=== PATIENT | female | born 1995 | race Caucasian/White ===

== ENCOUNTER 2019-08-12 12:42 | Inpatient (IN) | payer BC ==
[2019-08-12 13:31] LABS: #Basophils 0.1 thou/uL (0.0-0.2); #Eosinphils 0.1 thou/uL (0.0-0.7); #Lymphocytes 2.7 thou/uL (1.20-3.40); #Monocytes 0.6 thou/uL (0.11-0.59); %Basophils 0.8 % (0.0-1.0); %Eosinophils 1.3 % (0.0-10.0); %Lymphocytes 25.8 % (21.0-51.0); %Monocytes 5.3 % (0.0-10.0); %Neutrophils 66.8 % (42.0-75.0); Hemoglobin 14.7 g/dL (12.0-16.0); Mean Corpuscular HGB CONC 34.6 g/dL (32.0-36.0); Mean Corpuscular Hemoglobin 31.4 pg (27.0-31.0); Mean Corpuscular Volume 90.8 fL (78.0-98.0); Mean Platelet Volume 6.8 fL (7.4-10.4); Platelet Count 451 thou/uL (130-400); RBC Distribution Width 11.2 % (11.5-14.5); Red Blood Cell (RBC) Count 4.67 mill/uL (4.20-5.40); White Blood Cell (WBC) Count 10.5 thou/uL (4.8-10.8)
[2019-08-12] MEDS ORDERED: Iopamidol 370 76% 100 ML VIAL ONE (13:34)
[2019-08-12] MEDS ORDERED: Ketorolac Tromethamine 30 MG/ML VIAL ONE (13:50)
[2019-08-12] MEDS ORDERED: diphenhydrAMINE 50 MG/ML VIAL ONE (13:50)
[2019-08-12] MEDS ORDERED: Metoclopramide HCl 10 MG/2 ML VIAL ONE (13:50)
[2019-08-12 13:51] LABS: ALT (SGPT) 29 U/L (8-55); AST (SGOT) 26 U/L (5-34); Albumin 4.8 g/dL (3.5-5.0); Alkaline Phosphatase 55 U/L (40-110); Anion Gap 16 mmol/L (10-20); BUN (Urea Nitrogen) 9 mg/dL (7.0-18.7); Bilirubin, Total 0.5 mg/dL (0.2-1.2); Calc. Creatinine Clearance 0 mL/min (70-130); Calcium 10.2 mg/dL (7.8-10.44); Carbon Dioxide 23 mmol/L (22-29); Chloride 105 mmol/L (98-107); Estimated GFR-MDRD 87; Globulin 3.6 g/dL (2.4-3.5); Glucose 97 mg/dL (70-105); Potassium 3.7 mmol/L (3.5-5.1); Protein, Total 8.4 g/dL (6.0-8.3); Sodium 140 mmol/L (136-145)
--- NOTE | 2019-08-12 13:56 | RAD ---
XR Chest 1 View Portable HISTORY: Fever, headache and stiff neck COMPARISON: None FINDINGS: The heart size is normal. The lungs are well expanded without focal areas of consolidation, pneumothorax or pleural effusions. IMPRESSION: No radiographic evidence of acute cardiopulmonary process.
[2019-08-12 14:21] LABS: MONO NEGATIVE CONTROL ZONE White (Negative) (White); MONO POSITIVE CONTROL Pink Line (Positive) (PINK/RED); Mononucleosis NEGATIVE (NEGATIVE)
[2019-08-12 14:26] LABS: Bilirubin Negative (Negative); Blood, Urine Negative (Negative); Clarity Clear (Clear); Glucose, Urine (Dipstick) 100 mg/dL (Negative); Leukocyte Negative Leu/uL (Negative); Nitrite Negative (Negative); Protein, Urine (Dipstick) Negative (Neg-Trace); Urobilinogen Normal mg/dL (Less than 2)
--- NOTE | 2019-08-12 15:01 | CT ---
CT BRAIN NONCONTRAST: DATE: 08/12/2019 HISTORY: 24-year-old female with headache FINDINGS: There is no evidence of acute intra-axial or extra-axial hemorrhage. There is no midline shift or any other mass effect. There is no extra-axial fluid collection. The ventricles are normal in size and configuration. The tympanomastoid cavities, and the upper portions of the paranasal sinuses included in these images, are grossly clear. Calvarium is intact. IMPRESSION: Normal.
--- NOTE | 2019-08-12 15:23 | CT ---
CT SOFT TISSUES OF NECK WITH IV CONTRAST: Date: 08/12/2019 INDICATION: Fever, headache, and neck pain. COMPARISON: None. FINDINGS: The visualized nasopharynx and oropharynx appears within normal limits. The tonsillar pillars appear within normal limits. Parapharyngeal space appears within normal limits. Parotid and submandibular glands are normal appearing. There is slight asymmetric enlargement of the thyroid gland with a small suspected cystic abnormality seen within the central aspect of the right t hyroid lobe measuring 7.0 mm. Larger enhancing nodule within the right thyroid gland cannot be entire ly excluded. No enlarged lymph nodes are evident. Prevertebral soft tissues are normal appearing. Visualized aryep iglottic folds and epiglottis appear within normal limits. Visualized lung apices are clear. Visualiz ed paranasal sinuses are clear. Mastoid air cells are clear. No definite acute osseous abnormality is evident. IMPRESSION: 1. No definite drainable fluid collection demonstrated. No significant lymphadenopathy seen. 2. Slight asymmetric prominence of the right thyroid gland. A follow-up nonemergent thyroid ultrasou nd may be helpful for additional characterization. POS: TPC
[2019-08-12] MEDS ORDERED: Cefepime 2 GM VIAL ONE (15:55)
[2019-08-12] MEDS ORDERED: Vancomycin 1 GM/200 ML BAG ONE (17:11)
[2019-08-12 18:27] VITALS: BMI 27.9
[2019-08-12] MEDS ORDERED: Sodium Chloride 0.9% 1,000 ML IV SCH (18:57)
[2019-08-12] MEDS ORDERED: Ondansetron PF 4 MG/2 ML Vial IVP PRN (18:57)
[2019-08-12] MEDS ORDERED: Ondansetron ODT 4 MG TAB SL PRN (18:57)
[2019-08-12] MEDS ORDERED: Acetaminophen 325 MG TAB PO PRN (18:57)
[2019-08-12] MEDS ORDERED: Senokot S 8.6-50 MG TAB PO PRN (19:34)
--- NOTE | 2019-08-12 20:41 | PDOC.HHP ---
Hospitalist HPI - History of Present Illness Headache and neck pain History of Present Illness: 24 yo female with history of ADHD presents to ER due to headache, fever, chills , sweats and neck stiffness. 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 She states that she has been having muscle pains, fever, dry cough x 10 days. She had some chills, joint pains at that time. She was seen by her PCP and was placed on Tamiflu and steroids for 5 days. She states that her cough got better. However, she continued to feel bad. She has had a headache for about 10 days now. About 5 days ago, she started having pain in her neck that is throbbing in nature and has been getting worse. Now, it is 10/10 intensity with stiffness in her neck. She states she is unable to turn her neck to either side. The pain radiates to the front of her head. She reports light sensitivity and blurry vision that started today morning. While she was at work today, she had profuse sweating and chills. So, she was sent to her PCP office who sent her to the ER. In the ER, she underwent CT neck and was felt to have thyroid infection and was given IV antibiotics and admitted to the hospital. She denies any seizures, weakness of her arms or legs. No N/V/C. She reports chronic diarrhea. She reports having a rash on her back, arms and legs 8 days ago that resolved a day later. She states that the rash was red and not raised. Not painful or itchy. No difficulty swallowing or speech changes. No CP, SOB, wheezing, burning or pain with urination. Reports nasal congestion and runny nose. No ear pain, disharge from ears or ringing sensation in her ears. 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) - Past Surgical History Past Surgical History: reports: Other (Left hip surgery) - Family History Family History: reports: diabetes mellitus (maternal side) - Social History Smoking Status: Never smoker Alcohol: reports: None Drugs: reports: none Living Situation: With Family Activity level: independent ambulation - Exam General Appearance: awake alert, ill appearing Eye: PERRL, anicteric sclera ENT: normocephalic atraumatic, no oropharyngeal lesions, moist mucosa Neck: symmetric, no JVD, no lymphadenopathy Neck - other findings: Neck stiffness present; patient not turning head to either side Heart: RRR, no murmur, no gallops, no rubs, normal peripheral pulses Respiratory: CTAB, no wheezes, no rales, no ronchi, normal chest expansion, no tachypnea Gastrointestinal: soft, non-tender, non-distended, normal bowel sounds, no palpable masses, no bruit Extremities: no cyanosis, no clubbing, no edema Skin: normal turgor, no lesions, no rashes Neurological: cranial nerve grossly intact, normal sensation to touch, no weakness, no focal deficits Neurological - other findings: Kernig's sign is positive; Neck stiffness present on exam Musculoskeletal: normal tone, normal strength, no muscle wasting Psychiatric: normal behavior, A&O x 3 Psychiatric - other findings: anxious Hospitalist Results - Labs Result Diagrams: 08/12/19 13:11 08/12/19 13:11 Lab results: WBC 10.5 thou/uL (4.8-10.8) 08/12/19 13:11 Hgb 14.7 g/dL (12.0-16.0) 08/12/19 13:11 Hct 42.4 % (36.0-47.0) 08/12/19 13:11 MCV 90.8 fL (78.0-98.0) 08/12/19 13:11 Plt Count 451 thou/uL (130-400) H 08/12/19 13:11 Neutrophils % 66.8 % (42.0-75.0) 08/12/19 13:11 Sodium 140 mmol/L (136-145) 08/12/19 13:11 Potassium 3.7 mmol/L (3.5-5.1) 08/12/19 13:11 Chloride 105 mmol/L (98-107) 08/12/19 13:11 Carbon Dioxide 23 mmol/L (22-29) 08/12/19 13:11 BUN 9 mg/dL (7.0-18.7) 08/12/19 13:11 Creatinine 0.80 mg/dL (0.6-1.1) 08/12/19 13:11 Glucose 97 mg/dL (70-105) 08/12/19 13:11 Lactic Acid 1.1 mmol/L (0.5-2.2) 08/12/19 13:11 Calcium 10.2 mg/dL (7.8-10.44) 08/12/19 13:11 Total Bilirubin 0.5 mg/dL (0.2-1.2) 08/12/19 13:11 AST 26 U/L (5-34) 08/12/19 13:11 ALT 29 U/L (8-55) 08/12/19 13:11 Alkaline Phosphatase 55 U/L (40-110) 08/12/19 13:11 Serum Total Protein 8.4 g/dL (6.0-8.3) H 08/12/19 13:11 Albumin 4.8 g/dL (3.5-5.0) 08/12/19 13:11 Urine Ketones Negative mg/dL (Negative) 08/12/19 13:55 Urine Blood Negative (Negative) 08/12/19 13:55 Urine Nitrite Negative (Negative) 08/12/19 13:55 Ur Leukocyte Esterase Negative Edwin/uL (Negative) 08/12/19 13:55 - EKG Interpretation EKG: Sinus rhythm; No ST-T changes concerning for ischemia - Radiology Interpretation CT scan - head Status: image reviewed by me (No acute hemorrhage or mass effect) Hospitalist H&P A/P - Problem (1) Headache Code(s): R51 - HEADACHE Status: Acute Qualifiers: Headache type: unspecified Headache chronicity pattern: acute headache Intractability: not intractable Qualified Code(s): R51 - Headache Assessment and Plan: Suspicion for bacterial/viral meningitis Patient received IV ABX of vanco & cefepime in ER Admit to inpatient status. Expected to stay at least 2 midnights. High risk due to risk of seizures and worsening infection IR guided LP tomorrow Continue IV vancomycin. Start ceftriaxone and acyclovir emperically. As patient already received abx, hold off on steroid therapy ID consult CSF analysis from LP Further management per ID and based on results of LP (2) ADHD Status: Chronic Qualifiers: Attention deficit-hyperactivity disorder type: unspecified Qualified Code(s ): F90.9 - Attention-deficit hyperactivity disorder, unspecified type Assessment and Plan: [facility] [place], [place] reviewed Patient on Adderral 10 mg PO TID This will be resumed at home dose (3) Thyroid nodule Code(s): E04.1 - NONTOXIC SINGLE THYROID NODULE Status: Chronic Assessment and Plan: CT scan with thyroid abnormality Will obtain US thyroid tomorrow TSH within normal limits - Plan Plan: CODE STATUS - FULL CODE
[2019-08-12] MEDS: Fioricet 325/50/40 mg Tablet PO PRN (20:57)
[2019-08-12] MEDS: cefTRIAXone\\ROCEPHIN 2 GM in Sodium Chloride 0.9% 100 ML IVPB SCH (20:58)
[2019-08-12] MEDS ORDERED: Dextroamphetamine/Amphetamine [Adderall] 10 MG PO SCH (21:00)
[2019-08-12] MEDS ORDERED: Dexamethasone 10 MG in Sodium Chloride 0.9% 50 ML IVPB SCH (21:00)
[2019-08-12] MEDS: Potassium Chloride 20 MEQ in Lactated Ringer's 1,000 ML IV SCH (21:58)
[2019-08-12] MEDS: Acyclovir Sodium 650 MG in Sodium Chloride 0.9% 100 ML IVPB SCH (21:58)
[2019-08-13] MEDS: Fioricet 325/50/40 mg Tablet PO PRN ×3 (01:41→20:24)
[2019-08-13] MEDS ORDERED: Ketorolac Tromethamine 30 MG/ML VIAL IVP SCH (03:15)
[2019-08-13] MEDS ORDERED: diphenhydrAMINE 50 MG/ML VIAL IVP SCH (03:15)
[2019-08-13] MEDS ORDERED: Prochlorperazine 10 MG/2 ML VIAL IVP SCH (03:15)
[2019-08-13] MEDS ORDERED: Vancomycin HCl 1.25 GM in Sodium Chloride 0.9% 250 ML 250 ML IVPB SCH (04:00)
[2019-08-13] MEDS: Acyclovir Sodium 650 MG in Sodium Chloride 0.9% 100 ML IVPB SCH ×3 (05:40→21:32)
[2019-08-13 06:26] LABS: #Basophils 0.1 thou/uL (0.0-0.2); #Eosinphils 0.2 thou/uL (0.0-0.7); #Lymphocytes 2.7 thou/uL (1.20-3.40); #Monocytes 0.6 thou/uL (0.11-0.59); #Neutrophils 5.3 thou/uL (1.40-6.50); %Basophils 0.8 % (0.0-1.0); %Eosinophils 2.3 % (0.0-10.0); %Lymphocytes 30.5 % (21.0-51.0); %Monocytes 7.1 % (0.0-10.0); %Neutrophils 59.3 % (42.0-75.0); Hemoglobin 12.5 g/dL (12.0-16.0); Mean Corpuscular HGB CONC 34.9 g/dL (32.0-36.0); Mean Corpuscular Hemoglobin 32.1 pg (27.0-31.0); Mean Corpuscular Volume 92.1 fL (78.0-98.0); Mean Platelet Volume 6.9 fL (7.4-10.4); Platelet Count 335 thou/uL (130-400); RBC Distribution Width 11.2 % (11.5-14.5); White Blood Cell (WBC) Count 8.9 thou/uL (4.8-10.8)
[2019-08-13 06:35] LABS: ALT (SGPT) 23 U/L (8-55); AST (SGOT) 22 U/L (5-34); Albumin 3.6 g/dL (3.5-5.0); Alkaline Phosphatase 43 U/L (40-110); Anion Gap 8 mmol/L (10-20); BUN (Urea Nitrogen) 6 mg/dL (7.0-18.7); Bilirubin, Total 0.5 mg/dL (0.2-1.2); Calc. Creatinine Clearance 119 mL/min (70-130); Calcium 8.7 mg/dL (7.8-10.44); Carbon Dioxide 25 mmol/L (22-29); Chloride 110 mmol/L (98-107); Estimated GFR-MDRD Greater than 90; Globulin 2.7 g/dL (2.4-3.5); Glucose 96 mg/dL (70-105); Protein, Total 6.3 g/dL (6.0-8.3); Sodium 139 mmol/L (136-145)
[2019-08-13] MEDS: cefTRIAXone\\ROCEPHIN 2 GM in Sodium Chloride 0.9% 100 ML IVPB SCH (08:03)
[2019-08-13] MEDS: Enoxaparin Sodium 40 MG/0.4 ML SYRINGE SC SCH (08:04)
--- NOTE | 2019-08-13 08:06 | ULT ---
THYROID ULTRASOUND INDICATION: Thyroid nodule TECHNIQUE: Grayscale and color Doppler images were obtained of the thyroid gland. COMPARISON: None FINDINGS: Right thyroid lobe: The right thyroid lobe measures 5.1 x 2.7 x 2.1 cm. There is a 3.9 x 1.7 x 1.7 cm mixed cystic and solid nodule. The nodule is 90% solid. The nodule is isoechoic to the thyroid parenchyma. The nodule is well-circumscribed and wider than tall. There is increased vascularity surr ounding the nodule. Thyroid isthmus: The thyroid isthmus measures 0.24 cm. Left thyroid lobe: The left thyroid lobe measures 5.1 x 2.7 x 2.1 cm. IMPRESSION: 1. TIRADS category 3: Mildly suspicious: Recommend FNA sampling of the predominantly solid 3.9 cm nod ule in the right mid thyroid lobe.
[2019-08-13] MEDS: Potassium Chloride 20 MEQ in Lactated Ringer's 1,000 ML IV SCH ×3 (09:37→23:59)
--- NOTE | 2019-08-13 10:37 | CON ---
DATE OF CONSULTATION: 08/13/2019 REASON FOR CONSULTATION: Fever and headaches. 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 Had a soft tissue neck CT, which did not show any major findings except for a slightly asymmetric right thyroid gland. The chest x-ray was within normal limits and the patient had a brain CT, which was also unremarkable. Currently, she is having still a sensation with moderate headaches, stiff neck. No visual symptoms. No sore throat, odynophagia, or dysphagia. General myalgias. No cough or sputum production or chest pain. No abdominal pain or diarrhea. No genitourinary symptoms. No joint symptoms or skin disorder. She did have what she describes as hives in the back area at the beginning of this syndrome. PAST MEDICAL HISTORY: Lithotripsy, D and C, groin lymph nodes with benign pathology. SOCIAL HISTORY: Does not smoke. She lives with her boyfriend in [facility]. Works at a doctor's office. Drinks occasionally. ALLERGIES: CODEINE. MEDICATIONS: She takes Adderall. PHYSICAL EXAMINATION: VITAL SIGNS: T-max 98.7, blood pressure 112/79, pulse 98, respirations 16, and O2 saturation 97% to 98%. SKIN: Normal. No lymphadenopathy. HEENT: Ocular movements conjugate. Sclerae white. Pupils are equal. Oral cavity normal. Teeth in very good shape. NECK: Moderately stiff. She is able to flex and touch the chest, but with difficulty. LUNGS: Clear. HEART: S1 and S2. Regular rate. No S3 or S4. ABDOMEN: Soft, not distended or tender. No ascites. No bladder distention. EXTREMITIES: No joint inflammatory activity. NEURO: Nonfocal including cognitive function. Awake, alert, and oriented. Speech is normal. Recollection is perfectly intact. LABORATORY DATA: Labs are fairly unremarkable except for serum total protein 8.4 and globulin was 3.6, now they were normalized. Urinalysis was fairly normal. [place] screen negative. White cell count 10.5 and platelets 451 and now 335. Normal differential. ASSESSMENT: Febrile illness with myalgias, headaches, absence of neutrophilia. She did have mild neutrophilia, but that has resolved. No lymphocytosis. DISCUSSION: Most likely scenario is a viral infection. We will check respiratory virus PCR panel, EBV panel, CMV, IgG and IgM, HIV, also submit syphilis serology just in case. Another possibility would be an autoimmune process that is less likely, but we will check JULIENNE. I do not think she needs a spinal tap at this point in time, but that may have to be reconsidered depending on clinical progress. Bacterial meningitis is not likely in view of the duration of illness and relatively benign clinical course. Job ID: [id number] [facility] HEALTHManuel
[2019-08-13 11:22] LABS: HIV (1/2) Antibody/Antigen Non-Reactive (NonReactive); HIV 1/2 INDEX 0.06 S/CO (<1.00); Syphilis Antibody Nonreactive (Nonreactive); Syphilis Antibody Index 0.07 S/CO (<1.00 Non-Reactive)
--- NOTE | 2019-08-13 12:24 | PRG ---
DATE OF SERVICE: 08/13/2019 SUBJECTIVE: The patient is seen and examined at the bedside. She feels somewhat better. She is able to ambulate. Her headache is improved and her photophobia is improved significantly. She is able to move her bowels. OBJECTIVE: VITAL SIGNS: Blood pressure is 104/72, pulse is 91, temperature is 98.4, maximal temperature is 98.7, respiratory rate is 20, and O2 saturation is 98% on room air. HEENT: Head is atraumatic and normocephalic. Eyes are PERRLA. Sclerae are nonicteric. Oral mucosa is moist. NECK: Supple. LUNGS: Clear. HEART: S1 and S2 normal. ABDOMEN: Soft, nontender. Bowel sounds are present. No organomegaly. EXTREMITIES: No clubbing, cyanosis, or edema. NEUROLOGICAL: She follows my commands. She moves all 4 extremities. There is no any motor or sensory deficits. There is some limitation in her neck movement, but that is secondary to the pain she has. LABORATORY DATA: Labs showed white count of 8.9, hemoglobin 12.5, hematocrit 35.9, platelet count 335,000 sodium of 139, potassium 4.0, chloride 110, CO2 of 25, BUN 6, and creatinine 0.74. The rest of chemistry is within normal limits. Syphilis IgG/IgM is nonreactive. Microbiology, two blood cultures, no growth. Group A Streptococcus screen throat swab. IMPRESSION AND PLAN: 1. Headache with photophobia along with neck pain and low-grade fever to rule out acute meningitis. The patient was seen by Dr. Aguilar, who does not feel that this is a meningitis. He ordered additional testing, respiratory virus PCR panel, EBV panel, CMV IgG and IgM, HIV and JULIENNE. 2. Thyroid nodule, status post thyroid ultrasound, which showed TI-RADS category 3, mildly suspicious, recommended FNA sampling of the predominantly solid 3.9 cm nodule in the right middle thyroid lobe. This is going to be done on outpatient basis after she is discharged and feeling better. Job ID: [id number]
[2019-08-14] MEDS ORDERED: Melatonin 3 MG TAB PO PRN (00:10)
[2019-08-14] MEDS: Potassium Chloride 20 MEQ in Lactated Ringer's 1,000 ML IV SCH (06:22)
[2019-08-14] MEDS: Acyclovir Sodium 650 MG in Sodium Chloride 0.9% 100 ML IVPB SCH (06:22)
[2019-08-14 07:46] VITALS: BP 106/69; TEMP 97.9
[2019-08-14] MEDS ORDERED: cefTRIAXone\\ROCEPHIN 2 GM in Sodium Chloride 0.9% 100 ML IVPB SCH (08:00)
[2019-08-14] MEDS: Enoxaparin Sodium 40 MG/0.4 ML SYRINGE SC SCH (08:26)
[2019-08-14 11:15] LABS: EBV VCA IgM <36.0 U/mL (0.0-35.9); Nuclear AG IgG (EBNA) AB 39.3 U/mL (0.0-17.9)
[2019-08-14] MEDS: Fioricet 325/50/40 mg Tablet PO PRN (13:33)
--- NOTE | 2019-08-14 14:10 | PQF ---
CLINICAL DOCUMENTATION IMPROVEMENT CLARIFICATION FORM: ICD-10 Updated PLEASE DO AN ADDENDUM TO THE PROGRESS NOTE WITH ANY DOCUMENTATION UPDATES OR ADDITIONS AND CARRY THROUGH TO DC SUMMARY. THANK YOU. DATE: 08/14/19 ATTN: DR. HARDWICK Please exercise your independent, professional judgment in responding to the clarification form. Clinical indicators are provided on the bottom of this form for your review Please check appropriate box(s) to clarify if the following diagnosis has been ruled in or ruled out: "SEPSIS" [ ] Ruled in diagnosis [ ] Continue to treat [ ] Resolved [ x] Ruled out diagnosis [ ] Cannot rule out diagnosis [ ] Other diagnosis [ ] Unable to determine In addition, please specify: Present on Admission (POA): [ ] Yes [ ] No [ ] Unable to determine For continuity of documentation, please document condition throughout progress notes and discharge summary. Thank You. CLINICAL INDICATORS - SIGNS / SYMPTOMS / LABS / RESULTS AND LOCATION IN ER NOTE: "SEPSIS" PULSE 131 RR 21 FEVERS AT HOME (PER ER NOTE) RISKS: MUSCLE PAIN, FEVER, AND DRY COUGH X 10 DAYS (H&P 3/4) SWEATING AND CHILLS (H&P 3/4) POSSIBLE THYROID INFECTION PER PCP (H&P 3/4) TREATMENT: IV VANCOMYCIN (ER) IV CEFEPIME (ER) IV FLUIDS (ER) BLOOD CULTURES NASAL AND THROAT SWAB UA ACYCLOVIR (08/11-PRESENT) IV ROCEPHIN (STARTED 08/13) INFECTIOUS DISEASE CONSULT [employer] Win[employer] (This form is maintained as a part of the permanent medical record) 2014 [employer]. All Rights Reserved [email or web address] Office: [phone] ANDREA
--- NOTE | 2019-08-14 14:39 | PRG ---
DATE OF SERVICE: 08/14/2019 SUBJECTIVE: Had headache earlier today and now is better. No vomiting. No chest pain. No abdominal pain or diarrhea. No genitourinary symptoms. OBJECTIVE: VITAL SIGNS: She has been afebrile and O2 saturations are good. GENERAL: Awake, alert, and oriented. NECK: Not stiff anymore. HEENT: Ocular movements conjugate. LUNGS: Clear. HEART: S1 and S2. Regular rate. ABDOMEN: Soft, not distended or tender. No ascites. No bladder distention. NEURO: Nonfocal. LABORATORY DATA: White cell count 8.9. Creatinine 0.74. All the serologies are not remarkable. 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 ASSESSMENT AND DISCUSSION: Febrile illness with headaches. She has improved and is ready to be discharged. Discontinue antimicrobial therapy. Follow up in the outpatient setting to evaluate her thyroid nodule. She can follow up with me as well to follow up to get the final results of all the previous serology submitted, that are not ready yet. Job ID: [id number]
--- NOTE | 2019-08-15 02:31 | DIS ---
DATE OF ADMISSION: 08/12/2019 DATE OF DISCHARGE: 08/14/2019 DIAGNOSES AT THE TIME OF DISCHARGE: 1. Febrile illness with headache, improved. 2. Thyroid nodule to be biopsied with fine-needle on outpatient basis. ENVIRONMENTAL COMPLIANCE INSPECTOR: Luis F Aguilar MD, Infectious Disease. HOSPITAL COURSE: The patient is a 24-year-old female, who has a history of ADHD, who presented to the emergency room due to headache, fever, chills, sweats, and neck stiffness. 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 Apparently, she had been having muscle pains, fever, dry cough x10 days. She had some chills, joint pains. She was seen by PCP and placed on Tamiflu and steroids for 5 days. After that, her cough got better. However, she continued to feel bad. She had headache for about 10 days prior to this hospitalization and for approximately 5 days prior to this hospitalization, she started having pain in her neck that was throbbing in nature and gradually got worse to the point that she rated this pain at 10/10 intensity with some stiffness in her neck. She also reported light sensitivity and blurry vision that started the day prior to this hospitalization. While she was at work, she had profuse sweating and chills, so she was sent to her PCP office, who send her to the emergency room. In the emergency room, she underwent CT scan of the neck and was found to have thyroid nodule. She did not have any nausea, vomiting, or abdominal pain. She has some chronic diarrhea. No chest pain, shortness of breath, wheezing, burning or pain on urination. She reported some nasal congestion and runny nose. At the time of emergency room visit, her white count was 10.5, hemoglobin of 14.7, hematocrit 42.4, platelets 451. Chemistry was within normal limits. EKG showed sinus rhythm with no ST-T wave changes concerning for ischemia. CT scan of the head did not show any acute abnormalities. She got admitted to the floor with antibiotics, vancomycin, and cefepime. She did not have an LP done. Apparently, she was not happy about having this diagnostic test. The LP was postponed since she had Lovenox. In the meantime, she was seen by Dr. Aguilar for Infectious Diseases evaluation. He wanted to observe her and he ordered PCR panel on a respiratory swab, which came back positive for rhinovirus. Also, he asked for EBV panel, CMV, IgG and IgM, HIV and syphilis serology along with JULIENNE. He did not think that she needed spinal tap at this time. She was continued on ceftriaxone and acyclovir, she was started in the emergency room. She improved to the point that she was able to get up and function. Her headache improved. Her neck stiffness improved. She is cleared by ID. She is going home on Tylenol with codeine 1 tablet q.4 hours p.r.n. as needed and continue Adderall 10 mg 3 times a day. She will follow up with Dr. Aguilar in 1 week. He should have all results back. In the meantime, we got syphilis IgG/IgM antibodies nonreactive. EBV capsid antigen IgM less than 36, EBV capsid antigen IgG high at 67.8, and EBV nuclear IgG antibodies 39.3, which is elevated. [place] screen was negative. HIV 1 and 2 nonreactive. PHYSICAL EXAMINATION: GENERAL: She was seen and examined before she was discharged. LUNGS: Clear. HEART: S1, S2 normal. No S3. No S4. ABDOMEN: Soft and nontender. EXTREMITIES: No clubbing, cyanosis, or edema. NEUROLOGICAL: She follows my commands. She moves all 4 extremities. There is some neck stiffness, but that is secondary to her neck pain. She is discharged in good condition with again recommendation to follow up with Dr. Aguilar in 1 week. Job ID: [id number]
[2019-08-15 04:09] LABS: CMV IgG AB Less than 0.60 U/mL (0.00-0.59)
--- NOTE | 2019-08-15 11:30 | EKG ---
Test Reason : Blood Pressure : / mmHG Vent. Rate : 119 BPM Atrial Rate : 119 BPM P-R Int : 122 ms QRS Dur : 080 ms QT Int : 306 ms P-R-T Axes : 058 041 044 degrees QTc Int : 430 ms Sinus tachycardia RSR' or QR pattern in V1 suggests right ventricular conduction delay Borderline ECG Confirmed by TAILIO CHUNG DO ([id number]), editor & co founder JENNIFER HUGHES ([id number]) on 08/15/2019 11:29:44 AM Referred By: Confirmed By:ATILIO CHUNG DO
--- NOTE | 2019-08-17 06:18 | PQF ---
CATALINA KIRK ZBIGNIEW A MD [id number] -[id number] CLINICAL DOCUMENTATION CLARIFICATION FORM: POST DISCHARGE Addendum to original discharge summary date: ____ Late entry note date: __ DATE:08/17/2019 ATTN: Jose Lundberg Please exercise your independent, professional judgment in responding to the clarification form. Clinical indicators are provided on the bottom of this form for your review In your clinical opinion based on clinical findings below, can you please indentify the etiology of Fever if due to: Please check appropriate box(s): [ ] Rhinovirus, please specify type: [ ] Upper respiratory infection [ ] Lower respiratory infection [ ] Other type:____ [ ] Thyroid nodule [ ] Other diagnosis [ ] Unable to determine In addition, please specify: Present on Admission (POA): [ ] Yes [ ] No [ ] Unable to determine For continuity of documentation, please document condition throughout progress notes and discharge summary. Thank You. CLINICAL INDICATORS - SIGNS / SYMPTOMS / LABS Laboratory 08/11 WBC 10.5, RDW 11.2, Plt count 451, MPV 6.8, Neutrophils 7.0, TSH 3rd Gen 2.8936, EBC Capsid Ag IgG Ab 67.8, EBV Nuclear Ag IgG Ab 39.3 Vital signs 08/11 BP 136/79, Pulse 131, Resp 21, Temp 98.6 Microbiology Nasal Swab 08/12 Positive with Rhinovirus H&P p1 08/11 Dr Durbin Presents to ER due to headache, fever, chills, sweats and neck stiffness H&P p1 08/11 Dr Durbin She states that she has been having muscle pains, fever, dry cough x 10 days. She had some chills, joint pains at that time H&P p1 08/[address] neck and was felt to have thyroid infection and was given IV antibiotics ID consult p2 08/12 DR Aguilar Febrile illness with myalgias, headaches, absence of neutrophilia. She did have mild neutrophilia, but that has resolved. Most likely scenario is a viral infection. RISK FACTORS H&P p1 08/11 ADHD H&P p4 08/11 Thyroid nodule Consult p1 08/12 Works at a doctor's office TREATMENTS: AUG 10 Tylenol 650 mg po AUG 10 IV Acyclovir Sodium 650mg AUG 10 IV Cefepime 2gm AUG 10 IV Cefepime 2mg AUG 10 Benedryl 50mg po AUG 10 IV Vancomycon 1gm ID consult 08/[address] neck ordered 08/11 Thyroid ultrasound ordered 08/12 ID consult p2 08/12 chest respiratory virus PCR panel, CMV, IgG and IgM, HIV (This form is maintained as a part of the permanent medical record) 2014 [employer]. All Rights Reserved [email or web address]
[2019-08-17 13:13] LABS: Bartonella henselae IgG Negative titer (Neg:<1:320); Bartonella henselae IgM Negative titer (Neg:<1:100); Bartonella quintana IgG Negative titer (Neg:<1:320); Bartonella quintana IgM Negative titer (Neg:<1:100)
== END 2019-08-14 15:46 | disposition home or self-care (01) | DRG 864 ==
LOC: ERS 12:42 → T4-B 18:15
PROVIDERS: ADMIT Internal Medicine; ATTEND Internal Medicine
DX: R50.9 Fever, unspecified (principal); Z88.8 Allergy status to other drugs, medicaments and biological substances; R51 Headache; E04.1 Nontoxic single thyroid nodule; F90.9 Attention-deficit hyperactivity disorder, unspecified type; Z90.49 Acquired absence of other specified parts of digestive tract
CPT/HCPCS: 36415; 70450; 70491; 71045; 76536; 80053; 81003; 83605; 84443; 85025; 86308; 86611; 86644; 86645; 86664; 86665; 86780; 87040; 87077; 87081; 87149; 87186; 87389; 87430; 87633; 93005; 96360; 96365; 96367; 96375; J0133; J0692; J0696; J0780; J1200; J1650; J1885; J2765; J3370; J3480; J3490; J7050; J7120; Q9967

== ENCOUNTER 2019-09-09 12:43 | Day surgery (SDC) | payer BC ==
[2019-09-08 14:48] VITALS: BMI 27.3
[~2019-09-09 12:43] MED LIST: FLU VACC QS2019-20(6MOS UP)/PF 60 MCG/0.5 ML SYRINGE IM ONE
[2019-09-09] MEDS ORDERED: Sodium Bicarbonate 2.5 MEQ/5 ML VIAL ONE (12:46)
[2019-09-09] MEDS ORDERED: Lidocaine 1% PF 5 ML VIAL ONE (12:46)
[2019-09-09 13:47] VITALS: BP 117/78; TEMP 98
--- NOTE | 2019-09-09 14:08 | ULT ---
Sonographic guided FNA right thyroid lobe mass HISTORY: Right thyroid mass. FINDINGS: After explaining the procedure and answering all questions, the dominant oval mass in the r ight thyroid lobe was again visualized. Sterile technique, buffered local anesthesia, sonographic guidance, and a medial approach were used t o carefully advance a 25-gauge needle into the dominant mass. A total of 4 passes were made. Tissue submitted to Dr. Greco from pathology for processing. Postprocedure imaging shows no evidence of complication. Patient tolerated the procedure well and was dismissed in good condition. IMPRESSION : Technically successful sonographic guided FNA right thyroid lobe mass. Pathology is pending.
== END 2019-09-09 13:38 | disposition home or self-care (01) ==
LOC: ULT 12:43
PROVIDERS: ATTEND Otolaryngology Plastic Surgery within the Head & Neck
PROC: BG44ZZZ Ultrasonography of Thyroid Gland (ICD-10-PCS; principal; 2019-09-09)
PROC: 0GBH3ZX Excision of Right Thyroid Gland Lobe, Percutaneous Approach, Diagnostic (ICD-10-PCS; principal; 2019-09-09)
DX: E04.1 Nontoxic single thyroid nodule (principal); E03.9 Hypothyroidism, unspecified; F90.9 Attention-deficit hyperactivity disorder, unspecified type; Z79.899 Other long term (current) drug therapy; Z88.5 Allergy status to narcotic agent
CPT/HCPCS: 60100; 76942; 88173; J2001

== ENCOUNTER 2019-10-19 05:49 | Outpatient (CLI) | payer BC, OTHER ==
[2019-10-19 11:03] LABS: BHCG - Serum Negative (NEGATIVE); Pregs Control Background? CLEAR/WHITE (CLR/WHITE); Pregs Control Bar Appear? YES (CONTROL BAR)
[2019-10-19 18:10] LABS: SARS-CoV-2 MS2 Positive; SARS-CoV-2 N Gene Negative; SARS-CoV-2 S Gene Negative; SARS-CoV-2 orf1ab Negative
== END 2019-10-19 05:50 | disposition home or self-care (01) ==
LOC: LABBT 05:49
PROVIDERS: ATTEND Otolaryngology Plastic Surgery within the Head & Neck
DX: Z01.812 Encounter for preprocedural laboratory examination (principal); Z11.59 Encounter for screening for other viral diseases; E07.89 Other specified disorders of thyroid
CPT/HCPCS: 84703; 85014; 87635; U0003

== ENCOUNTER 2019-10-21 06:46 | Day surgery (SDC) | payer BC ==
[2019-10-19 08:22] VITALS: BMI 27.3
[2019-10-21] MEDS ORDERED: Fentanyl 250 MCG/5 ML VIAL ONE (07:17)
[2019-10-21] MEDS ORDERED: Lidocaine 1% w/Epinephrine 1:100K 20 ML VIAL ONE (08:43)
[2019-10-21] MEDS ORDERED: Bacitracin Zinc Ointment 30 gm TUBE ONE (08:43)
[2019-10-21] MEDS ORDERED: Acetaminophen 500 MG TAB ONE (08:53)
[2019-10-21] MEDS ORDERED: Midazolam HCl 2 mg/2 ml Vial ONE (08:53)
[2019-10-21] MEDS ORDERED: Ondansetron PF 4 MG/2 ML Vial ONE (11:15)
[2019-10-21] MEDS ORDERED: Lidocaine 1% PF 5 ML VIAL ONE (11:15)
[2019-10-21] MEDS ORDERED: EPHEDRINE 25 MG/5 ML SYRINGE ONE (11:15)
[2019-10-21] MEDS ORDERED: PROPOFOL 200 MG/20 ML VIAL ONE (11:15)
[2019-10-21] MEDS ORDERED: Dexamethasone 20 MG/5 ML VIAL ONE (11:15)
[2019-10-21] MEDS ORDERED: Rocuronium Bromide 10 MG/ML (10ML VIAL) ONE (11:15)
[2019-10-21] MEDS ORDERED: Meperidine HCl/PF 25 MG/ML VIAL ONE (11:29)
[2019-10-21] MEDS ORDERED: Fentanyl 100 MCG/2 ML VIAL ONE ×2 (11:35→11:55)
[2019-10-21] MEDS ORDERED: Morphine 4 MG/ML VIAL ONE (12:52)
[2019-10-21] MEDS ORDERED: Morphine 2 MG/ML SYRINGE ONE ×2 (13:14→13:48)
[2019-10-21] MEDS ORDERED: HYDROcodone/Acetaminophen 5/325 mg Tablet ONE (14:31)
--- NOTE | 2019-10-22 06:45 | OP ---
DATE OF PROCEDURE: 10/21/2019 PREOPERATIVE DIAGNOSES: 1. Right thyroid nodule. 2. Dysphagia. POSTOPERATIVE DIAGNOSES: 1. Right thyroid nodule. 2. Dysphagia. PROCEDURES PERFORMED: 1. Right thyroidectomy with intraoperative laryngeal nerve monitor. 2. Direct laryngoscopy. ESTIMATED BLOOD LOSS: 10 mL. COMPLICATIONS: None. ANESTHESIA: GETA. DESCRIPTION OF PROCEDURE: The patient was taken to the operating room, placed supine on the table. General endotracheal anesthesia was obtained by the Anesthesia staff. Tube was secured in the midline of the upper lip. A shoulder roll was placed. Following this, the direct laryngoscope was used to visualize the vocal cords and the laryngeal monitor was noted to be positioned appropriately between the vocal cords. Following this, the patient was prepped and draped in standard surgical fashion. 7 mL 1% lidocaine with 1:100,000 epinephrine was injected into the skin overlying the anticipated incision. Following this, incision was made with a 15 blade through skin, subcutaneous tissue, and the platysmal layer, approximately 4 to 5 cm in length. Following this, subplatysmal flaps were elevated superiorly to the level of the thyroid notch and inferiorly to the level of the sternal notch. Following this, the strap muscles were identified in the midline and were . A plane between the large right thyroid lobe and the strap muscles was developed. The dissection was carried medially around the thyroid capsule. The middle thyroid vein was suture ligated. Following this, the gland was displaced inferiorly and the superior thyroid pole vascular pedicle was suture ligated immediately adjacent to the gland. The superior parathyroid was identified and was preserved. Following this, the gland was displaced from the wound and the right recurrent laryngeal nerve was identified and it was traveling approximately 15 degrees from the tracheoesophageal angle. The nerve was protected as the inferior thyroid artery and inferior parathyroid gland was suture ligated and removed from the thyroid attachments. Following this, smaller attachments of Marquis's ligament were suture ligated and the entire right lobe along with the isthmus of the thyroid was removed from the body and sent for pathological analysis. Hemostasis was obtained. Frozen section pathological interpretation showed follicular lesion and for final path. Therefore, a drain was placed and the wound was closed using 3-0 Monocryl for the strap muscles and 4-0 Monocryl for the platysmal layer and the subcuticular layer. Dermabond was placed over the skin. The drain that was placed was noted to be working at the end of the procedure. The patient tolerated the procedure well. Job ID: [id number]
== END 2019-10-21 16:05 | disposition home or self-care (01) ==
LOC: SDC 06:46
PROVIDERS: ATTEND Otolaryngology Plastic Surgery within the Head & Neck
PROC: 0GBH0ZZ Excision of Right Thyroid Gland Lobe, Open Approach (ICD-10-PCS; principal; 2019-10-21)
DX: E06.3 Autoimmune thyroiditis (principal); E04.1 Nontoxic single thyroid nodule; F90.9 Attention-deficit hyperactivity disorder, unspecified type; Z79.899 Other long term (current) drug therapy; Z88.5 Allergy status to narcotic agent
CPT/HCPCS: 88307; 88331; 88334; J1100; J2001; J2175; J2250; J2270; J2405; J2704; J3010